=== PATIENT | female | born 1965 | race Caucasian/White ===

== ENCOUNTER 2020-05-22 17:23 | Emergency (ER) | payer OTHER ==
[2020-05-22 17:32] VITALS: BP 118/60; PULSE 70; TEMP 98.1; BMI 21.2
[2020-05-22] MEDS ORDERED: DIPHTH,PERTUSS(ACELL),TET 0.5 ML DISP.SYRIN IM ONE ×2 (18:05→18:15)
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
--- NOTE | 2020-05-22 19:44 | PDOC ---
*Physical Exam - Vital Signs Last Vital Signs Temp Pulse Resp BP Pulse Ox 98.1 F 70 18 118/60 100 05/22/20 17:23 05/22/20 17:23 05/22/20 17:23 05/22/20 17:23 05/22/20 17:23 ED Treatment Course - Medications Given in the ED: ED Medications Discontinued Medications Generic Name Dose Route Start Last Admin Trade Name Freda PRN Reason Stop Dose Admin Diphtheria/Tetanus/Acell Pertussis 0.5 ml 05/22/20 18:05 05/22/20 18:44 Boostrix - IM 05/22/20 18:06 0.5 ml .ONCE ONE Administration Oxycodone/Acetaminophen 1 combo 05/22/20 17:46 05/22/20 17:59 Percocet 5/325 - PO 05/22/20 17:47 1 combo ONCE ONE Administration ED Progress Note - Progress Note Progress Note: Care of this patient received from . Patient has a mildly displaced fracture of the radial head. Dr. Banks, on- call for orthopedics was contacted and case discussed with him. Patient can be seen tomorrow morning in Dr. Banks's office. Meanwhile, patient should be maintained in a sling with area iced. No splint necessary. Results and recommendations/plan as per Dr. Banks discussed with the patient . Although splint was not necessary, the patient asked that one be placed since she felt that immobilization would be helpful to decrease the amount of pain that she was feeling. Using Ortho-Glass material, posterior arm splint fashioned from distal humerus to mid hand and attached using Robin wraps. Distal neurovascular functioning intact after placement of the splint. Sling was reapplied after this. Patient will follow-up with Dr. Banks tomorrow morning for further care. Percocet 5/325, 2 tabs, dispensed to the patient for use later this evening and prior to seeing Dr. Banks if she experiences severe pain (to be used as 1 tablet every 4 to 6 hours as needed) . Patient understands that she cannot take Percocet if she is participating in any activity that requires her full attention. Otherwise, she will use ibuprofen or acetaminophen for mild to moderate pain. Discharge - Discharge Information Problems reviewed: Yes Clinical Impression/Diagnosis: Radial head fracture, closed Qualifiers: Encounter type: initial encounter Fracture alignment: displaced Laterality: left Qualified Code(s): S52.122A - Displaced fracture of head of left radius, initial encounter for closed fracture Condition: Stable Disposition: HOME - Follow up/Referral Referrals: Ajay Banks MD [Staff Physician] - Call tomorrow - Patient Discharge Instructions Patient Printed Discharge Instructions: DI for Forearm Fracture Additional Instructions: Keep left arm elevated in sling with splint in place until seen by orthopedist Apply ice, 15 minutes on/15 minutes off, to left elbow tonight Tylenol/Motrin as needed for mild to moderate pain; Percocet 5/325, 1 tablet every 6 hours as needed for severe pain Avoid any activity involving full attention while taking Percocet Call Dr. Banks's office tomorrow morning and arrange follow-up with him - Post Discharge Activity
== END 2020-05-22 20:25 | disposition home or self-care (01) ==
LOC: FER 17:23
PROC: 3E0234Z Introduction of Serum, Toxoid and Vaccine into Muscle, Percutaneous Approach (ICD-10-PCS; principal; 2020-05-22)
DX: S52.122A Displaced fracture of head of left radius, initial encounter for closed fracture (principal)
CPT/HCPCS: 73030-TC-LT-FY; 73070-TC-LT-FY; 73090-TC-LT-FY; 90471; 90715; 99284-25